=== PATIENT | male | born 1985 | race Caucasian/White ===

== ENCOUNTER 2019-07-29 14:29 | Emergency (ER) | payer OTHER, SELFPAY ==
--- NOTE | ~2019-07-29 | XR_ITS ---
XR elbow RT min 3V DATE: 07/29/2019 15:11 INDICATION: Posterior laceration from lawnmower TECHNIQUE: 4 views COMPARISON: None FINDINGS: Posteromedial right elbow soft tissue laceration is evident. No radiopaque foreign body of the soft tissues is evident. No fracture or dislocation or joint effusion is detected. IMPRESSION: Posteromedial soft tissue laceration; no opaque foreign body No fracture or dislocation or joint effusion Reviewed, dictated and finalized at location A.
[2019-07-29 14:33] VITALS: BP 136/89; PULSE 80; RESP 16; TEMP 36.4; O2SAT 100
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
[2019-07-29] MEDS: ceFAZolin SODIUM 1 GM VIAL IM (15:48)
[2019-07-29] MEDS: WATER, STERILE FOR INJECTION 10 ML VIAL XX (16:19)
[2019-07-29] MEDS: TETANUS,DIPHTHERIA,AC PERTUSSIS ADULT (0.5 ML) BOOSTRIX IM (17:27)
[2019-07-29 17:40] VITALS: BP 144/95; PULSE 69; RESP 16; TEMP 36.4; O2SAT 99
== END 2019-07-29 17:42 | disposition home or self-care (01) ==
PROVIDERS: Emergency Provider Emergency Medicine; PCP Physician Assistant
DX: S51.011A Laceration without foreign body of right elbow, initial encounter (principal); Z23 Encounter for immunization; W28.XXXA Contact with powered lawn mower, initial encounter
CPT/HCPCS: 12002; 73080; 90471; 90715; 96372; 99283; A9270; J0690

== ENCOUNTER 2022-03-13 18:16 | Emergency (ER) | payer OTHER, SELFPAY ==
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
[2022-03-13 18:18] VITALS: BP 149/87; PULSE 72; RESP 18; TEMP 36.4; O2SAT 99
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
[2022-03-13] MEDS: CYCLOBENZAPRINE HCL 10 MG TABLET PO (20:38)
[2022-03-13] MEDS: IBUPROFEN 600 MG TABLET PO (20:38)
[2022-03-13] MEDS: ACETAMINOPHEN 500 MG TABLET 1000 MG PO (20:38)
== END 2022-03-13 20:43 | disposition home or self-care (01) ==
PROVIDERS: Emergency Provider Emergency Medicine; PCP Physician Assistant
DX: S49.91XA Unspecified injury of right shoulder and upper arm, initial encounter (principal); V49.00XA Driver injured in collision with unspecified motor vehicles in nontraffic accident, initial encounter
CPT/HCPCS: 73030; 99283; A9270

== ENCOUNTER 2022-12-02 09:42 | Emergency (ER) | payer OTHER, SELFPAY ==
--- NOTE | ~2022-12-02 | XR_ITS ---
XR foot RT min 3V DATE: 12/02/2022 10:30 INDICATION: Right plantar foot pain after walking barefoot yesterday TECHNIQUE: 4 views COMPARISON: None FINDINGS: Mild osteoarthritis at the right first metatarsophalangeal joint. No fracture or dislocation, periosteal reaction or bone destruction, subcutaneous emphysema or radiop aque foreign body. 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
[2022-12-02 09:54] VITALS: BP 128/93; PULSE 91; RESP 16; TEMP 36.6; O2SAT 99
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
== END 2022-12-02 11:03 | disposition home or self-care (01) ==
PROVIDERS: Emergency Provider Nurse Practitioner Family; PCP Physician Assistant
DX: M79.671 Pain in right foot (principal)
CPT/HCPCS: 73630; 99213; G0463